=== PATIENT | female | born 1970 | race Caucasian/White ===

== ENCOUNTER 2016-07-24 08:26 | Emergency (ER) | payer BC ==
[2016-07-24 08:36] VITALS: TEMP 97.5; BMI 24.5
--- NOTE | 2016-07-24 09:31 | PDOC ---
History of Present Illness - General Chief Complaint: Shortness of Breath Stated Complaint: SOB, CHEST PRESSURE Time Seen by Provider: 07/24/16 08:44 History Source: Patient Exam Limitations: No Limitations - History of Present Illness Initial Comments: 07/24/16 09:06 45-year-old female presents to the ED with sudden onset of shortness of breath and chest tightness that began yesterday afternoon. Patient states was walking up a set of steps when symptoms occur and has continued since causing difficulty to sleep, difficulty taking a deep breath, or difficulty performing activities of daily living. Patient denies recent travel, recent illness, palpitations, thyroid disease, leg/calf pain, exogenous estrogen usage, smoking history, recent surgery, or recent road trip. Patient denies cardiac history, pulmonary disease, or similar symptoms previously Presenting Symptoms: Chest Pain, Short of Breath Timing/Duration: reports: constant Severity/Quality: reports: moderate, tightness Location: reports: substernal Chest Pain Radiation: reports: back Activities at Onset: reports: exertion Prior Chest Pain/Cardiac Workup: reports: No prior chest pain Nitro Today/Relief: Yes: no nitro taken today Aspirin Received prior to arrival (Core Measure): Yes: no aspirin today Associated Symptoms: Yes: Chest Pain/pressure, Shortness of Breath Past History - Past Medical History Allergies/Adverse Reactions: Allergies Allergy/AdvReac Type Severity Reaction Status Date / Time No Known Allergies Allergy Verified 07/24/16 08:36 Home Medications: Ambulatory Orders NK [No Known Home Medication] 07/24/16 Suicide Attempt (Hx): No - Surgical History Abdominal Surgery: Yes - Reproductive History (#): 9 Para: 5 Spontaneous : 4 - Immunization History Immunization Up to Date: Yes - Psycho/Social/Smoking Cessation Hx Anxiety: No Suicidal Ideation: No Smoking Status: No Smoking History: Never smoked Have you smoked in the past 12 months: No Number of Cigarettes Smoked Daily: 0 Information on smoking cessation initiated: No Hx Alcohol Use: No Drug/Substance Use Hx: No Substance Use Type: None Patient Lives Alone: No Review of Systems - Review of Systems Able to Perform ROS?: Yes Constitutional: No: Symptoms Reported HEENTM: No: Symptoms Reported Respiratory: Yes: Shortness of Breath, SOB with Exertion, SOB at Rest Cardiac (ROS): Yes: Chest Tightness ABD/GI: No: Symptoms Reported : No: Symptoms Reported Musculoskeletal: No: Symptoms Reported Integumentary: No: Symptoms Reported *Physical Exam - Vital Signs Last Vital Signs Temp Pulse Resp BP Pulse Ox 97.5 F L 67 18 104/75 98 07/24/16 08:28 07/24/16 08:28 07/24/16 08:28 07/24/16 08:28 07/24/16 08:31 - Physical Exam General Appearance: Yes: Nourished, Appropriately Dressed. No: Apparent Distress HEENT: negative: Pale Conjunctivae Neck: positive: Normal Thyroid, Supple Respiratory/Chest: positive: Decreased Breath Sounds (right base), Other (poor inspiratory effort). negative: Respiratory Distress, Accessory Muscle Use Cardiovascular: positive: Regular Rhythm, Regular Rate. negative: Murmur Gastrointestinal/Abdominal: positive: Soft. negative: Tenderness Extremity: positive: Normal Capillary Refill. negative: Pedal Edema, Calf Tenderness Integumentary: positive: Normal Color, Warm, Moist Neurologic: positive: Motor Strength 5/5 (ambulatory) Heart Score/ECG Review - History History: Slightly suspicious - Electrocardiogram EKG: Normal - Risk Factors Based on the list above the patient has:: No risk factors known - Troponin Troponin: </= normal limit - ECG Intrepretation Rhythm: Regular Rhythm (sinus bradycardia at 57) ED Treatment Course - LABORATORY CBC & Chemistry Diagram: 07/24/16 09:15 07/24/16 09:15 - ADDITIONAL ORDERS Additional order review: Laboratory Results 07/24/16 07/24/16 07/24/16 11:05 11:05 09:15 INR D-Dimer Puncture Site Left radial ABG pH 7.43 ABG pCO2 at Pt Temp 39.2 ABG pO2 at Pt Temp 90.3 ABG HCO3 25.3 ABG O2 Sat (Measured) 97.1 ABG O2 Content 18.1 ABG Base Excess 1.4 Param Test Positive Carboxyhemoglobin 1.1 Methemoglobin 0.6 O2 Delivery Device Room air Oxygen Flow Rate 21% PEEP 0.0 Sodium Potassium Chloride Carbon Dioxide Anion Gap BUN Creatinine Creat Clearance w eGFR Random Glucose Calcium Total Bilirubin AST ALT Alkaline Phosphatase Creatine Kinase Troponin I Total Protein Albumin Serum , Qual Negative 07/24/16 07/24/16 07/24/16 09:15 09:15 09:15 INR 1.12 D-Dimer 228 Puncture Site ABG pH ABG pCO2 at Pt Temp ABG pO2 at Pt Temp ABG HCO3 ABG O2 Sat (Measured) ABG O2 Content ABG Base Excess Param Test Carboxyhemoglobin Methemoglobin O2 Delivery Device Oxygen Flow Rate PEEP Sodium 140 Potassium 4.3 Chloride 104 Carbon Dioxide 28 Anion Gap 8 BUN 17 Creatinine 0.8 D Creat Clearance w eGFR > 60 Random Glucose 98 Calcium 8.8 Total Bilirubin 0.3 AST 14 L ALT 21 Alkaline Phosphatase 52 D Creatine Kinase 79 Troponin I < 0.02 Total Protein 7.2 Albumin 3.9 Serum , Qual 07/24/16 09:15 RBC 4.54 MCV 87.9 MCHC 33.6 RDW 12.9 MPV 8.9 Neutrophils % 61.3 Lymphocytes % 27.2 Monocytes % 4.0 Eosinophils % 6.3 H Basophils % 1.2 - RADIOLOGY Radiology Studies Ordered: Category Date Time Status CHEST CTA [CT] Stat CT Scan 07/24/16 11:39 Ordered CHEST X-RAY PORTABLE* [RAD] Stat Radiology 07/24/16 09:09 Completed Medical Decision Making - Medical Decision Making 07/24/16 09:01 Patient complaints of sudden onset of shortness of breath while walking up steps now with continual chest tightness and difficulty breathing even at rest. Patient concerning for PE based on clinical exam and history. Patient satting at 100% on room air with poor inspiratory effort displaying decreased breath sounds to right lower base. Patient be also ordered for an x-ray to rule out spontaneous pneumothorax. Cardiac workup including d-dimer was ordered. Patient currently a hitcher. 07/24/16 10:22 Laboratory Tests 07/24/16 07/24/16 07/24/16 09:15 09:15 09:15 WBC 7.6 Hgb 13.4 Hct 39.9 Plt Count 283 Neutrophils % 61.3 INR 1.12 Sodium 140 Potassium 4.3 Chloride 104 Carbon Dioxide 28 Anion Gap 8 BUN 17 Creatinine 0.8 D Creat Clearance w eGFR > 60 Random Glucose 98 Calcium 8.8 Total Bilirubin 0.3 AST 14 L Alkaline Phosphatase 52 D Creatine Kinase 79 Troponin I < 0.02 Serum , Qual 07/24/16 09:15 WBC Hgb Hct Plt Count Neutrophils % INR Sodium Potassium Chloride Carbon Dioxide Anion Gap BUN Creatinine Creat Clearance w eGFR Random Glucose Calcium Total Bilirubin AST Alkaline Phosphatase Creatine Kinase Troponin I Serum , Qual Negative Chest x-ray shows no acute findings. Patient still remains dyspneic with minimal exertion. Patient satting at 97% with good waveform. Patient questionable psychiatric history including anxiety and denies and on exam does not appear anxious. Patient will be ordered for CTA to rule out PE versus other underlying causes. Patient also added for an ABG. 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 I explained to patient about pumping or alternate with formula or home health. Patient continues to refuse stating she will not have the CT done. Explained to patient in detail about a possible PE and patient states will not also be admitted since she has to be home to nurse her children. Patient states will sign out AMA which I've explained to patient that if she signs out AMA she has a risk of a PE causing cardiac arrest which in layman terms means .. Patient states is fully aware will sign form.. 07/24/16 14:13 Patient refused to sign AMA form and is repeat vitals normal *DC/Admit/Observation/Transfer Diagnosis at time of Disposition: Acute dyspnea, Tightness in chest - Discharge Dispostion Disposition: AGAINST MEDICAL ADVICE Condition at time of disposition: Fair - Referrals Referrals: Estephanie Marte MD [Primary Care Provider] - - Patient Instructions Printed Discharge Instructions: DI for Shortness of Breath, DI for Chest Pain Additional Instructions: Understand by signing out AMA that you assume responsibility for your medical outcome that brought you to the ER today which was chest tightness and shortness of breath. If your symptoms worsen you may come to the ER at any given time. Otherwise follow-up with your from a care physician.
[2016-07-24 09:47] LABS: BASOPHIL 1.2 % (0-2.0); EOSINOPHIL 6.3 % (0-4.5); INR 1.12 (0.82-1.09); MCH 29.5 pg (25.7-33.7); MCHC 33.6 g/dl (32.0-36.0); MEAN CELL VOLUME 87.9 fl (80-96); MEAN PLT VOLUME 8.9 fl (7.5-11.1); NEUTROPHILS 61.3 % (42.8-82.8); PLATELET COUNT 283 K/MM3 (134-434); PROTHROMBIN TIME (PATIENT) 12.3 SEC (9.98-11.88); RDW 12.9 % (11.6-15.6); WHITE BLOOD COUNT 7.6 K/mm3 (4.0-10.0)
[2016-07-24 10:09] LABS: ALBUMIN 3.9 g/dl (3.4-5.0); ANION GAP 8 (8-16); BILIRUBIN,TOTAL 0.3 mg/dL (0.2-1.0); CALCIUM 8.8 mg/dL (8.5-10.1); CO2 28 mmol/L (21-32); CREATININE 0.8 mg/dL (0.55-1.02); GLUCOSE,RANDOM 98 mg/dL (74-106); SGOT/AST 14 U/L (15-37); SGPT/ALT 21 U/L (12-78); TOT PROT 7.2 g/dl (6.4-8.2)
[2016-07-24 10:12] LABS: ALK PHOS 52 U/L (45-117); TROPONIN I < 0.02 ng/ml (0.00-0.05)
[2016-07-24 11:08] LABS: ARTERIAL BLD GAS O2 SATURATION 97.1 % (90-98.9); ARTERIAL BLOOD GAS BASE EXCESS 1.4 meq/l (-2-2); ARTERIAL BLOOD GAS HCO3 25.3 meq/L (22-26); ARTERIAL BLOOD GAS PO2 90.3 mmHg (80-100); ARTERIAL BLOOD GAS pH 7.43 (7.35-7.45)
[2016-07-24 11:09] LABS: ALLENS TEST POSITIVE; ART PUNCT SITE LEFT RADIAL; LPM/O2% 21%; PT. ON O2? NO; TYPE OF O2 ROOM AIR
[2016-07-24 11:10] LABS: METHEMOGLOBIN 0.6 % (0.4-1.5)
--- NOTE | 2016-07-24 13:56 | EKG ---
Test Reason : Blood Pressure : / mmHG Vent. Rate : 057 BPM Atrial Rate : 057 BPM P-R Int : 136 ms QRS Dur : 082 ms QT Int : 420 ms P-R-T Axes : 050 039 021 degrees QTc Int : 408 ms SINUS BRADYCARDIA OTHERWISE NORMAL ECG WHEN COMPARED WITH ECG OF 13-JUL-2013 18:21, NO SIGNIFICANT CHANGE WAS FOUND Confirmed by LEILA RAMON MD ([id number]) on 07/24/2016 1:55:38 PM Referred By: Confirmed By:LEILA RAMON MD
[2016-07-24 14:19] VITALS: BP 131/71; PULSE 61
== END 2016-07-24 14:23 | disposition left against medical advice (07) ==
LOC: JER 08:26
DX: R06.00 Dyspnea, unspecified (principal); R07.9 Chest pain, unspecified
CPT/HCPCS: 36415; 36600; 71010-TC; 80053; 81003; 82375; 82550; 82803; 83050; 84484; 84703; 85025; 85379; 85610; 93005; 93010; 99283-25

== ENCOUNTER 2018-06-28 19:07 | Emergency (ER) | payer BC ==
--- NOTE | 2018-06-28 19:13 | PDOC ---
Rapid Medical Evaluation Time Seen by Provider: 06/28/18 19:11 Medical Evaluation: Allergies Allergy/AdvReac Type Severity Reaction Status Date / Time No Known Allergies Allergy Verified 07/24/16 08:36 06/28/18 19:11 I performed a brief in-person evaluation of this patient. Chief complaint: Left flank pain since 1pm Pertinent physical exam findings: LLQ and left CVA tenderness I have ordered the following: UA, culture, preg Patient will proceed to the ED for further evaluation.
[2018-06-28 19:16] VITALS: BMI 25.2
--- NOTE | 2018-06-28 19:48 | PDOC ---
History of Present Illness - General Chief Complaint: Pain Stated Complaint: BACK PAIN Time Seen by Provider: 06/28/18 19:11 History Source: Patient - History of Present Illness Initial Comments: 06/28/18 19:46 47 year old female with left flank pain worse with movement since 1 pm. denies lifting or injury or trauma, denies chest pain, pleuritic chest pain, abdominal pain, urinary symptoms, fever/ chills, nausea, vomiting. Past History - Past Medical History Allergies/Adverse Reactions: Allergies Allergy/AdvReac Type Severity Reaction Status Date / Time No Known Allergies Allergy Verified 06/28/18 20:34 Home Medications: Ambulatory Orders Cyclobenzaprine HCl [Flexeril -] 10 mg PO TID PRN #9 tablet 06/28/18 Ibuprofen 600 mg PO QID PRN #20 tablet 06/28/18 CVA: No COPD: No - Surgical History Abdominal Surgery: Yes - Reproductive History (#): 9 Para: 5 Spontaneous : 4 - Immunization History Immunization Up to Date: Yes - Suicide/Smoking/Psychosocial Hx Smoking Status: No Smoking History: Never smoked Have you smoked in the past 12 months: No Number of Cigarettes Smoked Daily: 0 Information on smoking cessation initiated: No Hx Alcohol Use: No Drug/Substance Use Hx: No Substance Use Type: None Review of Systems - Review of Systems Able to Perform ROS?: Yes Is the patient limited [place] proficient: No Constitutional: No: Symptoms Reported, See HPI, Chills, Diaphoresis, Fever, Loss of Appetite, Malaise, Night Sweats, Weakness, Weight Stable, Unintentional Wgt. Loss, Unexplained wgt Loss, Other : Yes: Flank Pain (left flank) Musculoskeletal: Yes: Muscle Pain *Physical Exam - Vital Signs Last Vital Signs Temp Pulse Resp BP Pulse Ox 97.5 F L 67 20 134/67 100 06/28/18 19:14 06/28/18 19:14 06/28/18 19:14 06/28/18 19:14 06/28/18 19:14 - Physical Exam General Appearance: Yes: Appropriately Dressed Respiratory/Chest: positive: Lungs Clear, Normal Breath Sounds. negative: Chest Tender Cardiovascular: positive: Regular Rhythm, Regular Rate Gastrointestinal/Abdominal: positive: Normal Bowel Sounds, Soft. negative: Tender Musculoskeletal: positive: Normal Inspection, Muscle Spasm (left flank area, pain worse with movement. ). negative: Vertebral Tenderness Extremity: positive: Normal Capillary Refill, Normal Inspection Integumentary: positive: Normal Color, Dry, Warm Neurologic: positive: Fully Oriented, Alert, Normal Mood/Affect Moderate Sedation - Procedure Monitoring Vital Signs: Procedure Monitoring Vital Signs Temperature 97.5 F L 06/28/18 19:14 Pulse Rate 67 06/28/18 19:14 Respiratory Rate 20 06/28/18 19:14 Blood Pressure 134/67 06/28/18 19:14 O2 Sat by Pulse Oximetry (%) 100 06/28/18 19:14 Progress Note - Progress Note Progress Note: A: muscle spasm P: tylenol ua urine toradol *DC/Admit/Observation/Transfer Diagnosis at time of Disposition: Muscle spasm of back - Discharge Dispostion Disposition: HOME - Prescriptions Prescriptions: Cyclobenzaprine HCl [Flexeril -] 10 mg PO TID PRN #9 tablet PRN Reason: Muscle Spasms Ibuprofen 600 mg PO QID PRN #20 tablet PRN Reason: Back Pain - Referrals Referrals: Estephanie Marte MD [Primary Care Provider] - - Patient Instructions Printed Discharge Instructions: Back Pain (Alternative Therapy) Additional Instructions: do light stretches apply ice/ heat to the area Take Flexeril as prescribed. It may make you sleepy and relax her muscles. Do not drive after taking the medication or operate any heavy machinery. You may take ibuprofen 4 times daily for pain. Take it with food. Please follow-up with your doctor as soon as possible. Return to the emergency room if symptoms worsen. - Post Discharge Activity Forms/Work/School Notes: Back to Work
[2018-06-28] MEDS ORDERED: ACETAMINOPHEN 500 MG TABLET (FP) PO ONE (19:51)
[2018-06-28] MEDS ORDERED: ACETAMINOPHEN 325 MG TABLET (FP) ONE (20:29)
[2018-06-28 20:39] LABS: URINE APPEARANCE CLEAR; URINE BILIRUBIN NEGATIVE (<2.0 mg/dL); URINE COLOR COLORLESS; URINE GLUCOSE (UA) NEGATIVE (NEGATIVE); URINE KETONE NEGATIVE (NEGATIVE); URINE LEUK ESTERASE NEGATIVE (NEGATIVE); URINE NITRITE NEGATIVE (NEGATIVE); URINE PROTEIN NEGATIVE (NEGATIVE); URINE UROBILINOGEN NEGATIVE mg/dL (0.2-1.0)
[2018-06-28] MEDS ORDERED: KETOROLAC TROMETHAMINE 30 MG/1 ML VIAL IM ONE (20:52)
[2018-06-28] MEDS ORDERED: KETOROLAC TROMETHAMINE 30 MG/1 ML VIAL ONE (20:56)
[2018-06-28 21:10] VITALS: BP 128/68; PULSE 68; TEMP 97.8
== END 2018-06-28 21:11 | disposition home or self-care (01) ==
LOC: JER 19:07
PROC: 3E0233Z Introduction of Anti-inflammatory into Muscle, Percutaneous Approach (ICD-10-PCS; principal; 2018-06-28)
DX: M62.830 Muscle spasm of back (principal)
CPT/HCPCS: 81003; 84703; 87086; 87186; 99281-25

== ENCOUNTER 2019-04-27 21:24 | Emergency (ER) | payer BC ==
--- NOTE | 2019-04-27 21:28 | PDOC ---
Rapid Medical Evaluation Time Seen by Provider: 04/27/19 21:25 Medical Evaluation: Allergies Allergy/AdvReac Type Severity Reaction Status Date / Time No Known Allergies Allergy Verified 06/28/18 20:34 04/27/19 21:26 I have performed a brief in-person evaluation of this patient. The patient presents with a chief complaint of: head and R wrist/hand injury s/ p fall at home tonight after falling down 1 flight of steps. +dizziness and near syncope while in WR. No LOC, visual changes, n/v or focal weakness. No sig neck/back pain but has bruises throughout body per pt. Not on blood thinners Pertinent physical exam findings:santi uncomfortable, stable I have ordered the following:CTH, R wrist/hand xray The patient will proceed to the ED for further evaluation. Discharge Disposition - Diagnosis Fall Qualifiers: Encounter type: initial encounter Qualified Code(s): W19.XXXA - Unspecified fall, initial encounter Closed head injury Qualifiers: Encounter type: initial encounter Qualified Code(s): S09.90XA - Unspecified injury of head, initial encounter - Referrals - Patient Instructions - Post Discharge Activity
[2019-04-27 21:31] VITALS: BMI 24.5
[2019-04-27] MEDS ORDERED: ACETAMINOPHEN 1000 MG/100 ML VIAL (NON FORMULARY) IVPB ONE (22:25)
[2019-04-27] MEDS ORDERED: SODIUM CHLORIDE 0.9% 1000 ML INFUS.BAG IV ONE (22:25)
--- NOTE | 2019-04-27 22:27 | PDOC ---
Documentation entered by Jorge Gorman SCRIBE, acting as scribe for Nancy Morrison DO. Nancy Morrison, : This documentation has been prepared by the Sherif peña Nirvannie, SCRIBE, under my direction and personally reviewed by me in its entirety. I confirm that the documentation accurately reflects all work, treatment, procedures, and medical decision making performed by me. History of Present Illness - General Chief Complaint: Injury Stated Complaint: FALL Time Seen by Provider: 04/27/19 21:25 History Source: Patient Exam Limitations: No Limitations - History of Present Illness Initial Comments: 04/27/19 23:07 The patient is a 48 year old female with no significant past medical history, who presents to the emergency department s/p mechanical fall with bilateral upper and lower extremity pain. As per patient, she was home at the top of the stairs at which time she turned subsequently tumbled down a flight of stairs. She is unaware if she lost consciousness but, endorses dizziness, mild shortness of breath, and a headache after the fall. She notes ambulating with significant pain s/p fall. While in the ED, patient complains of right wrist pain with both passive and active movement. She notes abrasions and soreness to the bilateral upper and lower extremities with associated soreness to the diffuse back. Patients last tetanus shot was 2 months ago. She denies any focal changes in strength or sensation. She denies any changes in vision, paresthesias, chest pain, or urinary/bowel incontinence. Allergies: [facility] Primary Care Physician: Dr. Marte Past History - Past Medical History Allergies/Adverse Reactions: Allergies Allergy/AdvReac Type Severity Reaction Status Date / Time No Known Allergies Allergy Verified 04/27/19 21:31 Home Medications: Ambulatory Orders Cyclobenzaprine HCl [Flexeril -] 10 mg PO TID PRN #9 tablet 06/28/18 Ibuprofen 600 mg PO QID PRN #20 tablet 06/28/18 Nitrofurantoin Monohyd/M-Cryst [Macrobid -] 100 mg PO BID #14 capsule 07/03/18 CVA: No COPD: No - Surgical History Abdominal Surgery: Yes - Reproductive History (#): 9 Para: 5 Spontaneous : 4 - Immunization History Immunization Up to Date: Yes - Psycho Social/Smoking Cessation Hx Smoking Status: No Smoking History: Never smoked Have you smoked in the past 12 months: No Number of Cigarettes Smoked Daily: 0 Information on smoking cessation initiated: No Hx Alcohol Use: No Drug/Substance Use Hx: No Substance Use Type: None Review of Systems - Review of Systems Able to Perform ROS?: Yes Comments:: 04/27/19 23:07 GENERAL/CONSTITUTIONAL: No fever or chills. No weakness. HEAD, EYES, EARS, NOSE AND THROAT: No change in vision. No ear pain or discharge. No sore throat. GASTROINTESTINAL: No nausea, vomiting, diarrhea or constipation. GENITOURINARY: No dysuria, frequency, or change in urination. CARDIOVASCULAR: No chest pain or shortness of breath. RESPIRATORY: No cough, wheezing, or hemoptysis. MUSCULOSKELETAL: No joint or muscle swelling or pain. No neck or back pain. SKIN: No rash NEUROLOGIC: No headache, vertigo, loss of consciousness, or change in strength/ sensation. ENDOCRINE: No increased thirst. No abnormal weight change. HEMATOLOGIC/LYMPHATIC: No anemia, easy bleeding, or history of blood clots. ALLERGIC/IMMUNOLOGIC: No hives or skin allergy. All Other Systems: Reviewed and Negative *Physical Exam - Vital Signs Last Vital Signs Temp Pulse Resp BP Pulse Ox 97.8 F 62 17 127/68 95 04/27/19 21:25 04/27/19 21:25 04/27/19 21:25 04/27/19 21:25 04/27/19 21:25 - Physical Exam 04/27/19 23:08 Constitutional: Awake, alert, oriented. No acute distress. Head: +Hematoma to the right forehead. Normocephalic. Eyes: PERRL. EOMI. Conjunctivae are not pale. ENT: Mucous membranes are moist and intact. Posterior pharynx without exudates or erythema. Uvula midline. Neck: Supple. Full ROM. No lymphadenopathy. Cardiovascular: Regular rate. Regular rhythm. S1, S2 regular. Distal pulses are 2+ and symmetric. Pulmonary/Chest: No evidence of respiratory distress. Clear to auscultation bilaterally No wheezing, rales or rhonchi. Abdominal: No ecchymosis. Soft and non-distended. There is no tenderness. No rebound, guarding or rigidity. No organomegaly. No palpable masses. Good bowel sounds. Back: No CVA tenderness. No step offs or deformities. Musculoskeletal: +Swelling and tenderness to the right wrist. Pelvis stable. No edema. No cyanosis. No clubbing. Full range of motion in all extremities. No calf tenderness. Radial/pedal pulses are intact and 2+ bilaterally Skin: +Abrasions to the bilateral upper extremities and right knees. Skin is warm and dry. No petechiae. No purpura. Neurological: Alert and oriented to person, place, and time. Cranial nerves II -XII are grossly intact. Normal speech. Strength is grossly symmetric. No sensory deficits. Psychiatric: Good eye contact. Normal interaction, affect and behavior. Heart Score/ECG Review - ECG Intrepretation Comment:: 04/27/19 23:13 sinus tyler at 59, nl axis, nl interval, no acute st/t wave findings ED Treatment Course - LABORATORY CBC & Chemistry Diagram: 04/27/19 23:36 04/27/19 23:36 - RADIOLOGY Radiology Studies Ordered: Category Date Time Status SPINE-LUMBAR SACRAL [RAD] Stat Radiology 04/27/19 22:24 Ordered SPINE-THORACIC [RAD] Stat Radiology 04/27/19 22:24 Ordered Medical Decision Making - Medical Decision Making 04/27/19 22:25 a/p: 48yo female with a fall down the stairs -pt with a turn at the top of the stairs and tumbled down the stairs -no loc -was able to get up and walk -deformity to R wrist/hand -swelling and bruising to forehead -ct head ordered from [facility] was neg for acute intracranial injury -xray R wrist + distal radius fx -back midline ttp- no stepoffs or deformities, FROM of the neck -felt lightheaded -will check labs, xrays, ua -will give ivf hydraiton -will monitor and reassess 04/27/19 23:11 splint being applied to distal radius fx, sling also for the arm 04/28/19 00:47 labs reviewed elevated wbc from stress reaction ua neg chem reviewed 04/28/19 01:15 no acute fx seen on back xray po challenge given stable for dc to home Discharge - Discharge Information Problems reviewed: Yes Clinical Impression/Diagnosis: Contusion, Abrasion, Distal radius fracture, right Fall Qualifiers: Encounter type: initial encounter Qualified Code(s): W19.XXXA - Unspecified fall, initial encounter Closed head injury Qualifiers: Encounter type: initial encounter Qualified Code(s): S09.90XA - Unspecified injury of head, initial encounter Condition: Stable Disposition: HOME - Admission No - Follow up/Referral Referrals: Estephanie Marte MD [Primary Care Provider] - Mateo Argueta MD [Staff Physician] - Pedro Werner DO [Staff Physician] - Jovan Cevallos MD [Staff Physician] - - Patient Discharge Instructions Patient Printed Discharge Instructions: How to Use a Sling, How to Prevent Falls, DI for Closed Head Injury, DI for Distal Radius Fracture Additional Instructions: Please keep the arm elevated. Please apply ice 20 min on and 20 min off. Please take tylenol or motrin as needed for pain. Please keep the splint dry. Please make an appointment in the AM to see the orthopedist. Please also follow up with your PMD. Please return to the ED with any further concerns or complaints. - Post Discharge Activity
[2019-04-27] MEDS ORDERED: oxyCODONE HCL 5 MG TABLET PO ONE (23:22)
[2019-04-27] MEDS ORDERED: ACETAMINOPHEN INJECTION 100 ML IVPB ONE (23:24)
[2019-04-27] MEDS ORDERED: oxyCODONE HCL 5 MG TABLET ONE (23:55)
[2019-04-28] LABS: BASO % 0.5 % (0-2.0); EOS % 2.4 % (0-4.5); HEMATOCRIT 36.9 % (32.4-45.2); HEMOGLOBIN 12.5 GM/dL (10.7-15.3); LYMPH % 14.1 % (8-40); MCH 30.3 pg (25.7-33.7); MEAN CELL VOLUME 89.3 fl (80-96); MEAN PLT VOLUME 8.7 fl (7.5-11.1); MONO % 4.7 % (3.8-10.2); NEUT % 78.3 % (42.8-82.8); PLATELET COUNT 270 K/MM3 (134-434); RBC 4.13 M/mm3 (3.60-5.2); RDW 12.6 % (11.6-15.6); WHITE BLOOD COUNT 14.9 K/mm3 (4.0-10.0)
[2019-04-28 00:27] LABS: ALBUMIN 3.9 g/dl (3.4-5.0); BILIRUBIN,TOTAL 0.4 mg/dL (0.2-1); BLOOD UREA NITROGEN 11.8 mg/dL (7-18); CALCIUM 8.5 mg/dL (8.5-10.1); CREATININE 0.7 mg/dL (0.55-1.3); POTASSIUM 3.8 mmol/L (3.5-5.1); TOT PROT 6.7 g/dl (6.4-8.2)
[2019-04-28 00:41] LABS: URINE APPEARANCE CLEAR; URINE BILIRUBIN NEGATIVE (NEGATIVE); URINE COLOR YELLOW; URINE GLUCOSE (UA) NEGATIVE (NEGATIVE); URINE KETONE TRACE (NEGATIVE); URINE LEUK ESTERASE NEGATIVE (NEGATIVE); URINE NITRITE NEGATIVE (NEGATIVE); URINE PROTEIN NEGATIVE (NEGATIVE); URINE UROBILINOGEN 0.2 mg/dL (0.2-1.0)
[2019-04-28] MEDS ORDERED: KETOROLAC TROMETHAMINE 30 MG/1 ML VIAL IVPUSH ONE (01:19)
[2019-04-28] MEDS ORDERED: KETOROLAC TROMETHAMINE 30 MG/1 ML VIAL ONE (01:43)
[2019-04-28 02:11] VITALS: BP 122/67; PULSE 76; TEMP 98.1
--- NOTE | 2019-04-28 11:58 | EKG ---
Test Reason : Blood Pressure : / mmHG Vent. Rate : 059 BPM Atrial Rate : 059 BPM P-R Int : 144 ms QRS Dur : 084 ms QT Int : 416 ms P-R-T Axes : 055 045 025 degrees QTc Int : 411 ms SINUS BRADYCARDIA OTHERWISE NORMAL ECG WHEN COMPARED WITH ECG OF 24-JUL-2016 08:31, NO SIGNIFICANT CHANGE WAS FOUND Confirmed by LEILA RAMON MD ([id number]) on 04/28/2019 11:57:47 AM Referred By: Confirmed By:LEILA RAMON MD
== END 2019-04-28 02:11 | disposition home or self-care (01) ==
LOC: JER 21:24
PROC: 2W3CX1Z Immobilization of Right Lower Arm using Splint (ICD-10-PCS; principal; 2019-04-27)
PROC: 3E033NZ Introduction of Analgesics, Hypnotics, Sedatives into Peripheral Vein, Percutaneous Approach (ICD-10-PCS; 2019-04-27)
PROC: 3E0333Z Introduction of Anti-inflammatory into Peripheral Vein, Percutaneous Approach (ICD-10-PCS; 2019-04-27)
DX: S52.591A Other fractures of lower end of right radius, initial encounter for closed fracture (principal); S00.83XA Contusion of other part of head, initial encounter; S40.812A Abrasion of left upper arm, initial encounter; S40.811A Abrasion of right upper arm, initial encounter; S80.812A Abrasion, left lower leg, initial encounter; S80.811A Abrasion, right lower leg, initial encounter; W10.8XXA Fall (on) (from) other stairs and steps, initial encounter; Y93.89 Activity, other specified; Y92.018 Other place in single-family (private) house as the place of occurrence of the external cause; Y99.8 Other external cause status
CPT/HCPCS: 36415; 70450-TC; 72070-TC-FY; 72100-TC-FY; 73110-TC-RT-FY; 73130-TC-RT-FY; 80053; 81003; 84703; 85025; 93005; 93010; 99284-25; J0131; J7030